=== PATIENT | male | born 1990 | race Hispanic/Latino ===

== ENCOUNTER 2023-06-24 18:17 | Emergency (ER) | payer OTHER ==
[~2023-06-24] VITALS: Ht 172.7 cm; Wt 71.2 kg
[2023-06-24 19:14] VITALS: BP 129/87; PULSE 89; RESP 20
[2023-06-24] MEDS: CHLORPROMAZINE HCL 25 MG/ML 1ML AMP IM SCH (19:38)
== END 2023-06-24 19:30 | disposition home or self-care (01) ==
LOC: EDH 18:17 → EEVIPCON 18:17 → EDH 19:30
DX: M79.10 Myalgia, unspecified site (principal); Z02.89 Encounter for other administrative examinations
CPT/HCPCS: 99283; 96372; J3230